=== PATIENT | male | born 2005 | race Caucasian/White ===

== ENCOUNTER → 2023-06-21 18:23 | Outpatient (BNVA) | payer MEDICAID, SELFPAY | PROVIDERS: Visit Provider Nurse Practitioner Family | DX: J02.9 Acute pharyngitis, unspecified (principal) | CPT/HCPCS: 87880 ==

== ENCOUNTER 2023-09-11 17:43 | Emergency (ER) | payer MEDICAID, SELFPAY ==
[2023-09-11 17:54] VITALS: BP 164/104; PULSE 87; RESP 18; TEMP 37; O2SAT 98
--- NOTE | 2023-09-11 18:26 | W.ED.BACK ---
HPI - Back Pain/Injury General: Chief Complaint: Back Pain/Injury Stated Complaint: back pain Time Seen by Provider: 09/11/23 18:24 History of Present Illness: 18-year-old male patient comes in for increased back pain over the last 2 weeks since starting a new job. Patient appears nontoxic. Patient ambulates without difficulty. Patient denies any chronic medical problems. Review of Systems General: Reports: 10 or more systems reviewed and unremarkable except in HPI and below Musc: Reports: back pain Physical Exam Const: COMMON NORMALS: alert HENMT: COMMON NORMALS: normocephalic HEAD & SCALP: normocephalic Neck/C-Spine: COMMON NORMALS: full ROM Resp: COMMON NORMALS: normal respiratory effort Cardio: COMMON NORMALS: regular rate RATE: regular rate Back/Pelvis: LUMBAR SPINE/LOWER BACK: Yes paraspinal muscle tenderness Extremity: COMMON NORMALS: full ROM Neuro: SENSORIUM/ORIENTATION: Yes alert Skin: COMMON NORMALS: turgor normal GENERAL SKIN EXAM: turgor normal Course Vital Signs: Vital signs: Vital Signs Temperature 98.6 F 09/11/23 17:54 Pulse Rate 87 09/11/23 17:54 Respiratory Rate 18 09/11/23 17:54 Blood Pressure 164/104 09/11/23 17:54 Pulse Oximetry 98 09/11/23 17:54 Oxygen Delivery Me thod Room Air 09/11/23 17:54 MDM - Back Pain/Injury Medical Decision Making Patient comes in for back pain starting after recent change in job. Patient reports increased lifting and activity requiring more manipulation of his back. Patient appears nontoxic. Patient denies any falls. Differential diagnosis includes intervertebral disc disease, facet arthropathy, lumbar strain. X-rays were deferred due to no injury. Believe patient most likely has a lumbar strain due to the new activity. Reviewed exam with patient with recommendations for treatment and follow-up. Patient reported understanding and agreed to plan. Patient was placed on naproxen 500 twice a day for 10 days for pain and inflammation. Patient was also given Flexeril to use as needed for muscle spasms. No radiology studies performed this visit Discharge Plan Discharge Patient Disposition: Home Clinical Impression: Strain of lumbar region Qualifiers: Encounter type: initial encounter Qualified Code(s): S39.012A - Strain of muscle, fascia and tendon of lower back, initial encounter Condition: Stable Prescriptions: New naproxen 500 mg tablet 500 mg PO BID Qty: 20 0RF cyclobenzaprine 10 mg tablet 10 mg PO BID PRN (Reason: muscle spasm) Qty: 20 0RF Rx Instructions: do not use while driving or operating equipment Discontinued amoxicillin-pot clavulanate 875-125 mg tablet 1 tab PO BID Qty: 20 0RF lidocaine HCl [Lidocaine Viscous] 2 % solution 1 applic mucous membrane TID PRN (Reason: pain) Qty: 100 0RF dexamethasone 6 mg tablet 12 mg PO ONCE Qty: 2 0RF Discharge Orders: Discharge ED (Routine); Ordered 09/11/23 Ordered By: Maverick Cervantes Discharge Diet: Usual diet Discharge Activity: Increase activity as tolerated Patient Instructions: Back Pain (ED) Activity Restrictions/Additional Instructions: Follow-up with primary care for further instructions and evaluation. Coding Level of Care Code ED Medical Transcriptionist for Harsh Payne
[2023-09-11] MEDS: ketorolac 30 mg/mL INJ IM (18:49)
[2023-09-11] MEDS: dexamethasone 10 mg/mL INJ IM (18:50)
[2023-09-11 18:57] VITALS: BP 164/104; PULSE 87; RESP 18; TEMP 37; O2SAT 98
== END 2023-09-11 18:57 | disposition home or self-care (01) ==
PROVIDERS: Emergency Provider Nurse Practitioner Family
DX: S39.012A Strain of muscle, fascia and tendon of lower back, initial encounter (principal); X58.XXXA Exposure to other specified factors, initial encounter
CPT/HCPCS: 96372; 99284; J1100; J1885

== ENCOUNTER → 2024-04-01 10:49 | Outpatient (BNVA) | payer MEDICAID, SELFPAY | DX: I10 Essential (primary) hypertension (principal) | CPT/HCPCS: 80053; 80061; 85025 ==